=== PATIENT | female | born 1980 | race Caucasian/White ===

== ENCOUNTER → 2016-06-19 | Outpatient (CLI) | payer OTHER ==
--- NOTE | 2016-06-19 08:12 | US ---
Ultrasound of the Abdomen Limited History: Right upper quadrant Abdominal pain. Comparison: None. Findings: Gallbladder: No shadowing calculi, wall thickening, or pericholecystic fluid. Common bile duct is 3.5 mm in diameter which is normal. Liver: In the right lobe of the liver there is a hyperechoic 1.1 x 0.9 x 0.9 cm lesion. The liver daniela sures 15 cm in length. Renal: Right kidney measures 11 x 6 x 5 cm without hydronephrosis. Pancreas: Homogeneous without peripancreatic fluid. Aorta: Visualized upper abdominal aorta demonstrates no aneurysm. Impression: 1. No cholelithiasis or biliary ductal dilation. 2. Hyperechoic 1.1 cm lesion in the right lobe of the liver which given the patient's age probably re presenting a hemangioma. Recommend follow-up ultrasound in 6 months to ensure stability.
== END ==
LOC: FIMAGING 07:23
PROVIDERS: ATTEND Surgery
DX: K76.9 Liver disease, unspecified (principal)

== ENCOUNTER 2017-08-31 10:12 | Emergency (ER) | payer MEDICAID, OTHER ==
[2017-08-31 10:20] VITALS: RESP 18
[2017-08-31] MEDS ORDERED: LIDOCAINE 2% JELLY 20 ML (UROJECT) ONE (10:25)
[2017-08-31] MEDS ORDERED: KETOROLAC 30 MG/1 ML SDV IVP ONE (11:50)
[2017-08-31] MEDS ORDERED: HYDROmorphONE/DILAUDID 2 MG/ML INJ IVP ONE (11:50)
[2017-08-31] MEDS ORDERED: HYDROmorphONE/DILAUDID 2 MG/ML INJ ONE (11:50)
[2017-08-31] MEDS ORDERED: KETOROLAC 30 MG/1 ML SDV ONE (11:51)
--- NOTE | 2017-08-31 11:59 | EDPHY ---
H & P Stated Complaint: l neck pain nontraumatic since /has seen chiropractor Time Seen by Provider: 08/31/17 11:33 - Personal History LMP (Females 10-55): 22-28 Days Ago Current Tetanus/Diphtheria Vaccine: Unsure - Medical/Surgical History Hx Asthma: No Hx Chronic Respiratory Disease: No Hx Diabetes: No Hx Cardiac Disease: No Hx Renal Disease: No Hx Cirrhosis: No Hx Alcoholism: No Hx HIV/AIDS: No Hx Splenectomy or Spleen Trauma: No Other PMH: denies - Social History Smoking Status: Current some day smoker Constitutional: Initial Vital Signs Temperature (C) 36.4 C 08/31/17 10:16 Heart Rate 64 08/31/17 10:16 Respiratory Rate 18 08/31/17 10:16 Blood Pressure 146/100 H 08/31/17 10:16 O2 Sat (%) 99 08/31/17 10:16 O2 Delivery Mode Room Air Allergies/Adverse Reactions: No Known Allergies Allergy (Unverified 08/31/17 10:16) Home Medications: Medication Instructions Recorded HYDROcodone/APAP 10/325 [[place] 1 - 2 each PO Q4-6PRN PRN #20 tab 08/31/17 10/325] Ondansetron Odt [Zofran Odt 4 mg 4 mg PO Q4 PRN #10 tab 08/31/17 (RX)] methylPREDNISolone [Medrol Dose 1 each PO AD #1 ea 08/31/17 Bart] Medical Decision Making ED Course/Re-evaluation: CHIEF COMPLAINT: Neck pain radiating into the left trapezius down the left arm HISTORY OF PRESENT ILLNESS: Patient had chiropractic manipulation a couple of days ago. Subsequent to that she developed pain at the base of her neck into her left trapezius and numbness and tingling down her left arm into her fingers. She denies any weakness of the biceps or triceps or anywhere else. She denies any other manipulation or injury besides this chiropractic manipulation. She denies any neurologic deficits. REVIEW OF SYSTEMS: A 10 point review of systems was performed and is negative with the exception of the elements mentioned in the history of present illness. PHYSICAL EXAM: HR, BP, O2 Sat, RR. Temp noted General Appearance: Alert, well hydrated, appropriate, and non-toxic appearing. Head: Atraumatic without scalp tenderness or obvious injury Eyes: Pupils equal, round, reactive to light and accommodation, EOMI, no trauma , no injection. Ears: Clear bilaterally, no perforation, normal landmarks Nose: Atraumatic, no rhinorrhea, clear. Throat: There is no erythema or exudates, no lesions, normal tonsils, mucus membranes moist. Neck: Supple, 2+ carotid upstroke, nontender, no lymphadenopathy. Respiratory: No retractions, no distress, no wheezes, and no accessory muscle use. Lungs are clear to auscultation bilaterally. Cardiovascular: Regular rate and rhythm, no murmurs, rubs, or gallops. Bilateral carotid, radial, dorsalis pedis, and posterior tibial pulses intact. Good capillary refill all extremities. Gastrointestinal: Abdomen is soft, nontender, non-distended, no masses, no rebound, no guarding, no peritoneal signs. Musculoskeletal: Pain at the base of her neck. Pain radiating to the left trapezius. And down her left arm. She has no motor deficits. Normal active ROM of all extremities, atraumatic. Neurological: Alert, appropriate, and interactive. The patient has normal DTRs and non-focal cranial nerves, motor, sensory, and cerebellar exam. Skin: No rashes, good turgor, no nodules on palpation. Past medical history: Noncontributory Past surgical history: Noncontributory Family history: Noncontributory Social history: , employed, child and in the room, does not abuse tobacco drugs or alcohol DIAGNOSTICS/PROCEDURES/CRITICAL CARE TIME: Study: MRI of the: Cervical spine without contrast Indication: Suspect a low cervical disc herniation to the left Results: MRI scan of the cervical spine was obtained. The results of the study are C4-C5 disc herniation. The study was read by the radiologist, Dr. Rudolph. I viewed the images myself on the PACS system. DIFFERENTIAL DIAGNOSIS: Includes but is not limited to: Neck muscle strain, disc herniation, nerve impingement, intrinsic shoulder injury MEDICAL DECISION MAKING: This patient had chiropractic manipulation. She then developed neck pain radiation to the left trapezius and down the left arm. She has no motor deficits. MRI is pending. 1:25 PM- MRI indicates disc herniation at C4-C5 per radiologist. She can be released with neurosurgery follow-up. I reassessed the patient and informed her of the results of her workup. Follow-up instructions and return precautions given. She agrees to this course of action. - Data Points Laboratory Results: 08/31/17 11:40 Beta HCG, Qual NEGATIVE Medications Given: Discontinued Medications Hydromorphone HCl (Dilaudid) 1 mg IVP EDNOW ONE Stop: 08/31/17 11:51 Last Admin: 08/31/17 11:52 Dose: 1 mg Ketorolac Tromethamine (Toradol) 30 mg IVP EDNOW ONE Stop: 08/31/17 11:51 Last Admin: 08/31/17 11:52 Dose: 30 mg Departure - Departure Disposition: Home, Routine, Self-Care Clinical Impression: Cervical disc herniation Condition: Good Instructions: Cervical Disc Herniation (ED) Additional Instructions: 1. Take hydrocodone as directed as needed for pain. Take Medrol dose pack as directed. Take Zofran as directed as needed for pain. 2. Follow up with neurosurgery regarding your visit. 3. Return to the emergency department for any worsening of condition. Referrals: Lb Zapien MD [Medical Doctor] - As per Instructions Prescriptions: HYDROcodone/APAP 10/325 [[place] 10/325] 1 - 2 each PO Q4-6PRN PRN #20 tab PRN Reason: Pain, Moderate methylPREDNISolone [Medrol Dose Bart] 1 each PO AD #1 ea Ondansetron Odt [Zofran Odt 4 mg (RX)] 4 mg PO Q4 PRN #10 tab PRN Reason: Nausea/Vomiting, Use 1st Report Scribed for: Hawk Pagan Report Scribed by: Carmen Jauregui Date of Report: 08/31/17 Time of Report: 13:32
[2017-08-31 13:38] VITALS: BP 135/78; PULSE 68; TEMP 98.1; O2SAT 95
== END 2017-08-31 13:45 | disposition home or self-care (01) ==
DX: M50.20 Other cervical disc displacement, unspecified cervical region (principal); F17.200 Nicotine dependence, unspecified, uncomplicated
CPT/HCPCS: 96374; J1170; J1885